=== PATIENT | female | born 1990 | race American Indian/Alaskan Native ===

== ENCOUNTER 2020-06-24 06:31 | Emergency (ER) | payer BC, MEDICAID, OTHER ==
[2020-06-24 06:53] VITALS: BP 104/67; PULSE 109
[2020-06-24] MEDS ORDERED: Diphtheria,Pertussis(Acell),Tetanus Vaccine 0.5 ML Syringe IM ONE (07:01)
--- NOTE | 2020-06-24 07:01 | EDM.PDOC ---
ED HPI GENERAL MEDICAL PROBLEM - General Chief Complaint: Upper Extremity Injury/Pain Stated Complaint: CUT HAND / HIT GARAGE DOOR Time Seen by Provider: 06/24/20 07:01 Source of Information: Reports: Patient, RN, RN Notes Reviewed History Limitations: Reports: No Limitations - History of Present Illness INITIAL COMMENTS - FREE TEXT/NARRATIVE: Pt presents to ER with c/o injury/laceration to left hand. Pt was punching a punching bag and missed striking a garage door. Denies any other injury. Pt states her last Tetanus vaccine was greater than 10 years ago. Onset: Today Duration: Constant Location: Reports: Upper Extremity, Left Quality: Reports: Ache Severity: Moderate Improves with: Reports: None Worsens with: Reports: None Left Hand Pain Score (Numeric/FACES): 7 - Related Data Allergies Allergy/AdvReac Type Severity Reaction Status Date / Time No Known Allergies Allergy Verified 06/24/20 06:45 Home Meds: Home Meds . 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 ED EXAM, GENERAL - Physical Exam Exam: See Below Exam Limited By: No Limitations General Appearance: Alert, WD/WN, No Apparent Distress Head: Atraumatic, Normocephalic Neck: Normal Inspection Respiratory/Chest: No Respiratory Distress Cardiovascular: Normal Peripheral Pulses Extremities: Normal Capillary Refill, Other (Dorasl left hand has a 2cm lac. and a 1.5cm lac. overlying the 3rd MCPJ with bruising and mild soft tissue swelling) Neurological: Alert, Oriented Psychiatric: Normal Mood Skin Exam: Warm, Dry, Normal Color ED TRAUMA EXTREMITY PROCEDURES - Laceration/Wound Repair Left Dorsal Hand Lac/Wound Length In cm: 3.5 (2cm and 1.5cm (3.5cm total)) Distal NVT: Neuro & Vascular Intact, No Tendon Injury Anesthetic Type: Local Local Anesthesia - Lidocaine (Xylocaine): 1% Plain Local Anesthetic Volume: 5cc Skin Prep: Chlorhexidine (Hibiciens), Saline Saline Irrigation (cc's): 1,000 Exploration/Debridement/Repair: Wound Explored, Minimal Debridement, Minimally Undermined Closed With: Sutures Suture Size: 4-0 # of Sutures: 9 Suture Type: Nylon, Interrupted Sterile Dressing Applied: Nurse Tetanus Status Addressed: Yes Complications: No Course - Vital Signs Last Recorded V/S: Last Vital Signs Temp 99.0 F 06/24/20 06:35 Pulse 109 H 06/24/20 06:35 Resp 16 06/24/20 06:35 BP 104/67 06/24/20 06:35 Pulse Ox 98 06/24/20 06:35 - Orders/Labs/Meds Orders: Active Orders 24 hr Category Date Time Status Vaccines to be Administered [RC] PER UNIT ROUTINE Care 06/24/20 07:02 Active Meds: Medications Discontinued Medications Generic Name Dose Route Start Last Admin Trade Name Freq PRN Reason Stop Dose Admin Diphtheria/Tetanus/Acell Pertussis 0.5 ml 06/24/20 07:01 06/24/20 07:16 Diphtheria,Pertussis(Acell),Tetanus Vaccine 0.5 Ml Syringe IM 06/24/20 07:02 0.5 ml .ONCE ONE Administration Ibuprofen 800 mg 06/24/20 07:02 06/24/20 07:16 Ibuprofen 800 Mg Tab PO 06/24/20 07:03 800 mg ONETIME ONE Administration Lidocaine HCl 30 ml 06/24/20 07:02 06/24/20 07:16 Lidocaine 1% 30 Ml Sdv INJECT 06/24/20 07:03 30 ml ONETIME ONE Administration Departure - Departure Time of Disposition: 07:41 Disposition: Home, Self-Care 01 Condition: Good Clinical Impression: Contusion of left hand, initial encounter Laceration of left hand Qualifiers: Encounter type: initial encounter Foreign body presence: without foreign body Qualified Code(s): S61.412A - Laceration without foreign body of left hand, initial encounter - Discharge Information *PRESCRIPTION DRUG MONITORING PROGRAM REVIEWED*: Not Applicable *COPY OF PRESCRIPTION DRUG MONITORING REPORT IN PATIENT SAMREEN: Not Applicable Instructions: Contusion, [id number], Laceration Care, Adult, [id number] Forms: ED Department Discharge Additional Instructions: Keep sutures clean and dry. Follow up in clinic in 7 to 10 days for suture removal. Return to ER or to clinic if any signs of wound infection develop. Sepsis Event Note (ED) - Evaluation Sepsis Screening Result: No Definite Risk - Focused Exam Vital Signs: Vital Signs Temp Pulse Resp BP Pulse Ox 06/24/20 06:35 99.0 F 109 H 16 104/67 98 - My Orders Last 24 Hours: My Active Orders 06/24/20 07:02 Vaccines to be Administered [RC] PER UNIT ROUTINE - Assessment/Plan Last 24 Hours: My Active Orders 06/24/20 07:02 Vaccines to be Administered [RC] PER UNIT ROUTINE
[2020-06-24] MEDS ORDERED: Ibuprofen 800 MG Tab PO ONE (07:02)
[2020-06-24] MEDS ORDERED: Lidocaine 1% 30 ML SDV INJECT ONE (07:02)
--- NOTE | 2020-06-24 07:39 | CR ---
PROCEDURE INFORMATION: Exam: XR Left Hand Exam date and time: 06/24/2020 6:44 AM Age: 29 years old Clinical indication: Pain; Hand; Left; Additional info: Hit garage door TECHNIQUE: Imaging protocol: XR Left hand. Views: 3 or more views. COMPARISON: No relevant prior studies available. FINDINGS: Bones/joints: There is no evidence of acute fracture or dislocation. No significant narrowing of the joint spaces. No lytic or blastic lesions. Soft tissues: No radiopaque foreign body within the soft tissues. IMPRESSION: No acute findings appreciated.
== END 2020-06-24 07:49 | disposition home or self-care (01) ==
LOC: DL.ED 06:31
DX: S61.412A Laceration without foreign body of left hand, initial encounter (principal); J45.909 Unspecified asthma, uncomplicated; Z72.0 Tobacco use; Z23 Encounter for immunization; W22.8XXA Striking against or struck by other objects, initial encounter
CPT/HCPCS: 12002; 73130; 90471; 90715; 99283; A9270

== ENCOUNTER 2021-09-09 05:31 | Emergency (ER) | payer MEDICAID ==
[2021-09-09] MEDS ORDERED: LORazepam 0.5 MG Tab PO ONE (05:40)
[2021-09-09] MEDS ORDERED: Lidocaine 1% 5 ML VIAL ONE (05:46)
[2021-09-09] MEDS ORDERED: Lidocaine 1% 50 MG/5 ML Syringe ONE (05:46)
[2021-09-09] MEDS ORDERED: Lidocaine 1% 5 ML VIAL INJECT ONE ×2 (05:56)
[2021-09-09 06:03] VITALS: BP 106/70; PULSE 83
== END 2021-09-09 06:05 | disposition home or self-care (01) ==
LOC: DL.ED 05:31
DX: S01.111A Laceration without foreign body of right eyelid and periocular area, initial encounter (principal); Z90.710 Acquired absence of both cervix and uterus; Y04.2XXA Assault by strike against or bumped into by another person, initial encounter
CPT/HCPCS: 12011; 99284; A9270

== ENCOUNTER 2023-02-01 14:55 | Emergency (ER) | payer MEDICAID ==
[2023-02-01 15:13] VITALS: BP 102/57; PULSE 77
[2023-02-01] MEDS ORDERED: methylPREDNISolone Sodium Succinate 125 MG/2 ML SDV IM ONE (15:51)
[2023-02-01] MEDS ORDERED: Azithromycin 250 MG Tab PO ONE (15:51)
[2023-02-01] MEDS ORDERED: Albuterol/Ipratropium 3.0-0.5 MG/3 ML Neb Soln NEB ONE (15:51)
[2023-02-01] MEDS ORDERED: Codeine/Promethazine 10-6.25 MG/5 ML Syrup 5 ML UD Cup PO ONE (15:52)
[2023-02-01 15:53] LABS: CORONAVIRUS COVID-19 NAA NEGATIVE (NEGATIVE); INFLUENZA A NAA NEGATIVE (NEGATIVE); INFLUENZA B NAA NEGATIVE (NEGATIVE); RESPIRATORY SYNCYTIAL VIR NAA NEGATIVE (NEGATIVE)
[2023-02-01] MEDS ORDERED: Take Home: Azithromycin 250 MG, 2 Tab Pack PO ONE (15:58)
[2023-02-01] MEDS ORDERED: Take Home: predniSONE 20 MG, 4 Tab Pack PO ONE (15:58)
[2023-02-01] MEDS ORDERED: Take Home: Benzonatate 100 MG, 6 Cap Pack PO ONE (15:58)
== END 2023-02-01 16:43 | disposition home or self-care (01) ==
LOC: DL.ED 14:55
DX: J44.1 Chronic obstructive pulmonary disease with (acute) exacerbation (principal); J45.41 Moderate persistent asthma with (acute) exacerbation; F17.210 Nicotine dependence, cigarettes, uncomplicated; Z90.710 Acquired absence of both cervix and uterus
CPT/HCPCS: 0241U; 71046; 96372; 99284; 99285; A9270-GY; J2930; J7620-GY